=== PATIENT | female | born 1985 ===

== ENCOUNTER 2017-03-27 18:12 | Emergency (ER) | payer SELFPAY ==
[2017-03-27 18:58] VITALS: TEMP 98; O2SAT 99
--- NOTE | 2017-03-27 19:44 | C.PDOC ---
History Of Present Illness 31 y/o female w/o significant PMHx presents to ED for evaluation of left upper back pain intermittent for a few days with associated sob and palpitations. Patient states pain is localized and worse with movement. Patient also complaints of facial, non pruritic rash developed on morning after going to the pool. Patient fever, chills, recent illness, headache, dizziness, visual changes, focal deficits, neck pain, CP, diaphoresis, abd. pain, V/D, UTI sx, or any other complaints at this time. Pt denies control use, no B/L lower legs pain, no risk factors for DVT or PE. Pt denies previous hx of card. ds. Ambulate to ED for evaluation, not in any apparent distress. Time Seen by Provider: 03/27/17 19:08 Chief Complaint (Nursing): Back Pain History Per: Patient History/Exam Limitations: no limitations Onset/Duration Of Symptoms: Days Current Symptoms Are (Timing): Still Present Exacerbating Factor(s): Movement Past Medical History Reviewed: Historical Data, Nursing Documentation, Vital Signs Vital Signs: Last Vital Signs Temp 98 F 03/27/17 18:57 Pulse 93 H 03/27/17 18:57 Resp 18 03/27/17 18:57 BP 147/90 03/27/17 18:57 Pulse Ox 99 03/27/17 20:14 Family History: States: No Known Family Hx - Social History Hx Alcohol Use: No Hx Substance Use: No Review Of Systems Except As Marked, All Systems Reviewed And Found Negative. Constitutional: Negative for: Fever, Chills Cardiovascular: Positive for: Palpitations Respiratory: Positive for: Shortness of Breath Gastrointestinal: Negative for: Nausea, Vomiting, Diarrhea Musculoskeletal: Positive for: Back Pain. Negative for: Neck Pain Skin: Positive for: Rash Physical Exam - Physical Exam Appears: Non-toxic, No Acute Distress Skin: Normal Color, Warm, Rash (Scattered papular rash to face, no pruritis, no erythema, no cellulitis), No Ecchymosis Eye(s): bilateral: PERRL Oral Mucosa: Moist, No Drooling Tongue: Normal Appearing, No Swelling Lips: Normal Appearing, No Swelling Throat: No Erythema, No Exudate, No Drooling, Other (uvula midline, no edema.) Neck: No Midline Cervical Tenderness, No Paracervical Tenderness, No Step Off Deformity, Supple Cardiovascular: Rhythm Regular, No Murmur, No JVD Respiratory: No Rales, No Rhonchi, No Stridor, No Wheezing Gastrointestinal/Abdominal: Soft, No Tenderness, No Guarding, No Rebound Back: No CVA Tenderness Extremity: No Pedal Edema Neurological/Psych: Oriented x3, Normal Motor, Normal Sensation, Normal Reflexes ED Course And Treatment - Laboratory Results Urine POC: Negative ECG: Interpreted By Me, Viewed By Me ECG Rhythm: Sinus Rhythm ECG Interpretation: Normal Interpretation Of ECG: SR@76/min, NAD, no acute t wave or ST-T changes. O2 Sat by Pulse Oximetry: 99 (RA) Pulse Ox Interpretation: Normal - Radiology CXR: Interpreted by Me, Viewed By Me Progress Note: On re-evaluation, pt is afebrile, hemodynamicaly stable, not in any apparent distress. Tolerate Po well in ED. PulseOx 99% RA. NEck: (-) meningeal sign. ENT: no acute findings. Lungs: CTA B/L, BS equal B/L. CVS: (+ )S1S2, reg. Abd: benign, (-) guarding, (-) rebound. back: (-) CVA tenderness. CXR, UA, EKG, D-Dimer- normal study. Pt has clinical findings c/w back pain, palpitation, rash r/o allergic reaction. Pt advised and ref. to f/u with PMD, Card and Derm in 2-3 days for re-eavl. return if any new changes. Disposition Counseled Patient/Family Regarding: Diagnosis, Need For Followup - Disposition Referrals: [facility] [Outside] Disposition: HOME/ ROUTINE Disposition Time: 21:08 Condition: STABLE Additional Instructions: Take medication as prescribed Encourage fluids Follow up with PMD, Cardiology and Dermatology in 2-3 days for re-evaluation. Return to ED if nay worsening or new changes. Prescriptions: Famotidine [Pepcid] 20 mg PO BID #10 tab Prednisone [Deltasone] 20 mg PO DAILY #3 tablet Instructions: Palpitations (ED), Food Allergy (ED) Print Language: SOMALI - Clinical Impression Clinical Impression: Back pain, Palpitation, Rash - PA / PROGRESSIVE CARE UNIT REGISTERED NURSE / Resident Statement MD/DO has reviewed & agrees with the documentation as recorded. - Scribe Statement The provider has reviewed the documentation as recorded by the Karely Kiran All medical record entries made by the Karely were at my direction and personally dictated by me. I have reviewed the chart and agree that the record accurately reflects my personal performance of the history, physical exam, medical decision making, and the department course for this patient. I have also personally directed, reviewed, and agree with the discharge instructions and disposition.
[2017-03-27 19:55] LABS: RBC URINE 3 /hpf (0-3); URINE BILIRUBIN NEGATIVE (NEGATIVE); URINE BLOOD 1+ (NEGATIVE); URINE COLOR Yellow (YELLOW); URINE GLUCOSE (UA) NORMAL (Normal); URINE KETONE NEGATIVE (NEGATIVE); URINE LEUKOCYTE ESTERASE NEG Leu/uL (Negative); URINE PROTEIN NEGATIVE (NEGATIVE); URINE UROBILINOGEN NORMAL mg/dL (0.2-1.0)
[2017-03-27 21:20] VITALS: BP 130/80; PULSE 78; RESP 20
--- NOTE | 2017-03-28 13:57 | RAD ---
HISTORY: Cough COMPARISON: No prior. TECHNIQUE: Chest PA and lateral FINDINGS: LUNGS: No active pulmonary disease. PLEURA: No significant pleural effusion identified. No pneumothorax apparent. CARDIOVASCULAR: Normal. OSSEOUS STRUCTURES: No significant abnormalities. VISUALIZED UPPER ABDOMEN: Normal. OTHER FINDINGS: None. IMPRESSION: No active disease.
== END 2017-03-27 21:19 | disposition home or self-care (01) ==
LOC: C.ER 18:12
DX: R00.2 Palpitations (principal); M54.9 Dorsalgia, unspecified; R21 Rash and other nonspecific skin eruption

== ENCOUNTER 2017-10-06 16:31 | Emergency (ER) | payer OTHER ==
[2017-10-06 17:07] VITALS: BMI 33.4
[2017-10-06 17:10] VITALS: O2SAT 98
[2017-10-06] MEDS ORDERED: Albuterol 0.083% Inhal Sol (2.5 mg/3 mL) UD IH STA (18:29)
[2017-10-06] MEDS ORDERED: Albuterol 0.083% Inhal Sol (2.5 mg/3 mL) UD ONE (18:37)
--- NOTE | 2017-10-06 18:53 | C.PDOC ---
History Of Present Illness 32 y/o female presents to the ER complaining of productive cough, pleuritic pain , chest tightness, and chills which have been present for 3 days. Patient reports that she took over the counter medications which provided no relief. Patient denies having any sore throat, ear pain, vomiting, diarrhea, and dysuria. Time Seen by Provider: 10/06/17 17:59 Chief Complaint (Nursing): Cough, Cold, Congestion History Per: Patient History/Exam Limitations: no limitations Onset/Duration Of Symptoms: Days Current Symptoms Are (Timing): Still Present Associated Symptoms: Chills, Cough. denies: Vomiting, Diarrhea Past Medical History Reviewed: Historical Data, Nursing Documentation, Vital Signs Vital Signs: Last Vital Signs Temp 97.9 F 10/06/17 17:10 Pulse 94 H 10/06/17 17:10 Resp 18 10/06/17 17:10 BP 149/88 10/06/17 17:10 Pulse Ox 98 10/06/17 19:55 - Medical History PMH: No Chronic Diseases Surgical History: No Surg Hx Family History: States: No Known Family Hx - Social History Hx Alcohol Use: No Hx Substance Use: No Review Of Systems Except As Marked, All Systems Reviewed And Found Negative. Constitutional: Positive for: Chills ENT: Negative for: Ear Pain, Throat Pain Cardiovascular: Positive for: Chest Pain Respiratory: Positive for: Cough (productive cough) Gastrointestinal: Negative for: Vomiting, Diarrhea Genitourinary: Negative for: Dysuria Physical Exam - Physical Exam Appears: Non-toxic, No Acute Distress, Other (speaks in full sentences, coughs occasionally) Skin: Normal Color, Warm Head: Atraumatic, Normacephalic Eye(s): bilateral: Normal Inspection, PERRL Oral Mucosa: Moist Throat: Normal, No Erythema, No Exudate Neck: Supple Chest: Symmetrical Cardiovascular: Rhythm Regular Respiratory: Normal Breath Sounds, Wheezing (mild scattered expiratory wheezing) Extremity: Normal ROM Neurological/Psych: Oriented x3, Normal Speech, Normal Cognition, Normal Motor, Normal Sensation ED Course And Treatment O2 Sat by Pulse Oximetry: 98 (RA) Pulse Ox Interpretation: Normal Progress Note: CXR ordered. Nebulizer treatment was provided to patient. Disposition Counseled Patient/Family Regarding: Studies Performed, Diagnosis, Need For Followup, Rx Given - Disposition Referrals: [facility] [Outside] Disposition: HOME/ ROUTINE Disposition Time: 19:00 Condition: STABLE Additional Instructions: SEGUIMIENTO CON OLGUIN MDICO / CLNICA EN 1-2 CALDERA USE MEDICAMENTOS SEGN LO INDICADO REGRESE AL DENG DE EMERGENCIA SI LOS SNTOMAS EMPEORAN Prescriptions: Albuterol HFA [Ventolin HFA 90 mcg/actuation (8 g)] 0.09 mg IH Q4 PRN #1 puff PRN Reason: Wheezing Benzonatate [Tessalon Perles] 100 mg PO BID PRN #15 sgl PRN Reason: Cough Naproxen 375 mg PO BID PRN #20 tablet PRN Reason: pain predniSONE [predniSONE Tab] 40 mg PO DAILY #6 tab Instructions: Upper Respiratory Infection (ED), Bronchospasm (ED) Forms: [employer] (Lithuanian) Print Language: NIUEAN - POA Present On Arrival: None - Clinical Impression Clinical Impression: Bronchospasm, Upper respiratory infection, Viral disease - Scribe Statement The provider has reviewed the documentation as recorded by the Luxibfaiza Sullivan Provider Attestation: All medical record entries made by the Scribe were at my direction and personally dictated by me. I have reviewed the chart and agree that the record accurately reflects my personal performance of the history, physical exam, medical decision making, and the department course for this patient. I have also personally directed, reviewed, and agree with the discharge instructions and disposition.
[2017-10-06] MEDS ORDERED: Naproxen 550 mg Tab PO STA (19:02)
[2017-10-06] MEDS ORDERED: Naproxen 550 mg Tab PO ONE (19:08)
[2017-10-06 20:54] VITALS: BP 123/75; PULSE 88; RESP 20; TEMP 98.6
--- NOTE | 2017-10-07 08:35 | RAD ---
HISTORY: cough, sob COMPARISON: Chest x-ray 03/27/2027 TECHNIQUE: Chest PA and lateral FINDINGS: LUNGS: No focal consolidation is seen. PLEURA: No pleural effusion is identified. CARDIOVASCULAR: Heart size is within normal limits. OSSEOUS STRUCTURES: Visualized osseous structures are unremarkable. VISUALIZED UPPER ABDOMEN: Unremarkable. OTHER FINDINGS: None. IMPRESSION: No acute cardiopulmonary process seen.
== END 2017-10-06 19:00 | disposition home or self-care (01) ==
LOC: C.ER 16:31
DX: J06.9 Acute upper respiratory infection, unspecified (principal); J98.01 Acute bronchospasm

== ENCOUNTER 2017-11-07 09:36 | Emergency (ER) | payer OTHER ==
[2017-11-07 09:40] VITALS: BMI 34.2
[2017-11-07 09:43] VITALS: BP 139/82; PULSE 95; RESP 18; TEMP 98.2; O2SAT 96
--- NOTE | 2017-11-07 11:27 | C.PDOC ---
History Of Present Illness 32 year old female presents to the emergency department complaining of flu like symptoms, including a subjective fever, dry cough, and body aches for the past 3 days. Patient is taking Motrin for the pain. Denies any recent travel or sick contacts. Has not received the flu vaccination. PMD: No primary care physician Chief Complaint (Nursing): Flu-like Symptoms History Per: Patient History/Exam Limitations: no limitations Onset/Duration Of Symptoms: Days (x3) Current Symptoms Are (Timing): Still Present Associated Symptoms: Fever, Cough, Nasal Congestion. denies: Sputum Past Medical History Reviewed: Historical Data, Nursing Documentation, Vital Signs Vital Signs: Last Vital Signs Temp 98.2 F 11/07/17 09:40 Pulse 95 H 11/07/17 09:40 Resp 18 11/07/17 09:40 BP 139/82 11/07/17 09:40 Pulse Ox 96 11/07/17 11:33 - Medical History PMH: No Chronic Diseases Surgical History: Appendectomy, Other Surgeries: Herniorrhaphy Family History: States: Unknown Family Hx - Social History Hx Tobacco Use: No Hx Alcohol Use: No Hx Substance Use: No - Immunization History Hx Tetanus Toxoid Vaccination: No Hx Influenza Vaccination: No Hx Pneumococcal Vaccination: No Review Of Systems Except As Marked, All Systems Reviewed And Found Negative. Constitutional: Positive for: Fever, Other (Body Aches) ENT: Positive for: Nose Congestion Cardiovascular: Positive for: Chest Pain Respiratory: Positive for: Cough, Shortness of Breath. Negative for: Sputum Gastrointestinal: Negative for: Nausea, Vomiting, Abdominal Pain, Diarrhea Physical Exam - Physical Exam Appears: Well, Non-toxic, No Acute Distress Skin: Normal Color Eye(s): bilateral: Normal Inspection, PERRL, EOMI Nose: Normal Throat: Normal Neck: Normal Cardiovascular: Rhythm Regular, No Edema, No Murmur Respiratory: Normal Breath Sounds, No Accessory Muscle Use, No Wheezing Gastrointestinal/Abdominal: Normal Exam, No Tenderness, No Distention Back: Normal Inspection Extremity: Normal ROM Neurological/Psych: Oriented x3, Normal Speech ED Course And Treatment O2 Sat by Pulse Oximetry: 96 (RA) Pulse Ox Interpretation: Normal Medical Decision Making Medical Decision Making: Discharge Time: 10:02 --Upon reevaluation patient is feeling better. Patient was discharged home with instructions to follow up with primary care physician. Disposition - Disposition Referrals: [facility] [Outside] [facility] [Outside] Disposition: HOME/ ROUTINE Disposition Time: 10:02 Condition: GOOD Additional Instructions: Thank you for letting us take care of you today. The emergency medical care you received today was directed at your acute symptoms. If you were prescribed any medication, please fill it and take as directed. It may take several days for your symptoms to resolve. Return to the Emergency Department if your symptoms worsen, do not improve, or if you have any other problems. Please contact your doctor or call one of the physicians/clinics you have been referred to that are listed on the Patient Visit Information form that is included in your discharge packet. Bring any paperwork you were given at discharge with you along with any medications you are taking to your follow up visit. Our treatment cannot replace ongoing medical care by a primary care provider (PCP) outside of the emergency department. Thank you for allowing the [facility] team to be part of your care today. Follow up with the clinic in 3-4 days for re-evaluation and further management. Alireza por dejarnos atenderlo hoy. La atencin mdica de emergencia que recibi hoy estaba dirigida a kelle sntomas agudos. Si le prescribieron algn medicamento, llnelo y tome segn las indicaciones. Kelle sntomas pueden tardar varios valdes en resolverse. Regrese al Departamento de Emergencia si kelle s ntomas empeoran, no mejoran o si tiene algn otro problema. Comunquese con schuster mdico o llame a margy de los mdicos / clnicas a los que rodriguez sido referido que figura en el formulario de Informacin de visita del paciente que se incluye en schuster paquete de bacilio. Traiga todos los documentos que recibi al momento del bacilio junto con los medicamentos que est tomando en schuster visita de seguimiento. Nuestro tratamiento no puede reemplazar la atencin mdica en curso por parte de un proveedor de atencin primaria (PCP) fuera del departamento de emergencias. Alireza por permitir que el equipo de [facility] sea parte de schuster cuidado hoy. Gricelda un seguimiento con la clnica en 3-4 valdes para osmany nueva evaluacin y ms administracin. Prescriptions: Ibuprofen [Motrin] 600 mg PO Q6 PRN #20 tab PRN Reason: Pain, Moderate (4-7) Oseltamivir Phosphate [Tamiflu] 75 mg PO BID #10 capsule Instructions: Viral Syndrome (ED) Forms: Gen Discharge Inst Luxembourgish, Work Excuse Print Language: QATARI - Clinical Impression Clinical Impression: Viral syndrome - Scribe Statement The provider has reviewed the documentation as recorded by the Scribe Deborah Cortés All medical record entries made by the Scribe were at my direction and personally dictated by me. I have reviewed the chart and agree that the record accurately reflects my personal performance of the history, physical exam, medical decision making, and the department course for this patient. I have also personally directed, reviewed, and agree with the discharge instructions and disposition.
== END 2017-11-07 10:02 | disposition home or self-care (01) ==
LOC: C.ER 09:36
DX: B34.9 Viral infection, unspecified (principal)